=== PATIENT | male | born 1955 | race African-American/Black ===

== ENCOUNTER 2017-10-12 00:19 | Emergency (ER) | payer MEDICARE ==
[~2017-10-12] VITALS: Ht 170.2 cm; Wt 88.0 kg
[2017-10-12] MEDS ORDERED: NORCO 10-325 T1 EACH ORAL ×2 (00:35→01:03)
[2017-10-12 00:40] VITALS: BP 149/90
[2017-10-12 01:09] VITALS: BP 149/90
[2017-10-12] MEDS ORDERED: HYDROcodone/Acetamin 10/325 tab ORAL ONE (01:15)
--- NOTE | 2017-10-12 02:52 | Emergency Room Report ---
History of Present Illness General Chief Complaint: Back Pain-No Injury Source: Patient Present Illness HPI 62-year-old male presents ED for evaluation. Patient presenting with back pain. History of chronic back pain takes [place] for pain. Denies any recent injury. Pain is throbbing, 8 out of 10, nonradiating. Denies chest pain or shortness of breath. No other aggravating or relieving factors. Denies any other associated symptoms Allergies: Coded Allergies: No Known Allergies (Unverified , 10/12/17) Patient History Past Medical History: none Past Surgical History: none Pertinent Family History: none Social History: Denies: smoking, alcohol use, drug use Immunizations: UTD Reviewed Nursing Documentation: PMH: Agreed, PSxH: Agreed Nursing Documentation-PMH Hx Diabetes: Yes - BORDERLINE Review of Systems All Other Systems: negative except mentioned in HPI Physical Exam Vital Signs Date Time Temp Pulse Resp B/P (MAP) Pulse Ox O2 Delivery O2 Flow Rate FiO2 10/12/17 00:27 97.2 76 18 149/90 95 Room Air 97.2 Sp02 EP Interpretation: reviewed, normal General Appearance: no apparent distress, alert, GCS 15, non-toxic Head: normocephalic Eyes: bilateral eye normal inspection, bilateral eye PERRL ENT: normal ENT inspection Neck: normal inspection Respiratory: chest non-tender, lungs clear, normal breath sounds, speaking full sentences Cardiovascular #1: regular rate, rhythm, no edema Gastrointestinal: normal bowel sounds, non tender, soft, non-distended, no guarding, no rebound Rectal: deferred Genitourinary: no CVA tenderness, no vertebral tenderness Musculoskeletal: gait/station normal, normal range of motion, non-tender Neurologic: alert, oriented x3, responsive, motor strength/tone normal, sensory intact, speech normal Psychiatric: normal inspection Skin: normal inspection Lymphatic: normal inspection Medical Decision Making Diagnostic Impression: Primary Impression: Back pain Qualified Codes: M54.6 - Pain in thoracic spine ER Course Hospital Course 62-year-old male presents ED complaining of mid back pain. No evidence of trauma Differential diagnoses include: pyelonephritis, kidney stone, muscle strain, Lspine fracture Clinical course Patient placed on stretcher. After initial history, physical exam reveals a elderly male in no acute distress. There is no vertebral body tenderness. There is some paraspinal pain in the thoracic region. No flank pain. on review of CURES patient does have some prescriptions for [place] but none filled recently. I agreed to provide him with 3 day supply. Given [place] here in ED. Upon reassessment patient states pain has improved. Diagnosis - back pain Stable and discharged to home with prescription for [place]. Followup with PMD. Return to ED if symptoms recur or worsen Last Vital Signs Date Time Temp Pulse Resp B/P (MAP) Pulse Ox O2 Delivery O2 Flow Rate FiO2 10/12/17 01:09 97.2 88 18 149/90 95 Room Air 207.0 Status: improved Disposition: HOME, SELF-CARE Condition: Stable Scripts Hydrocodone Bit/Acetaminophen 10-325* (NORCO 10-325*) 1 Each Tablet 1 TAB ORAL Q6H Y for For Pain, #15 TAB 0 Refills PRN PAIN Prov: EFREN CORTES M.D. 10/12/17 Referrals: NOT CHOSEN [facility]/,REFERRING (PCP) Patient Instructions: Back Pain, Adult EFREN CORTES M.D. Oct 12, 2017 02:52
== END 2017-10-12 01:09 | disposition home or self-care (01) ==
LOC: EMR 00:51
DX: M54.6 Pain in thoracic spine (principal)
CPT/HCPCS: 99283